=== PATIENT | female | born 1975 | race Caucasian/White ===

== ENCOUNTER 2020-08-17 08:46 | Outpatient (NON) | payer OTHER, SELFPAY ==
[2020-08-17 18:45] LABS: SARS-CoV-2 RNA PCR Positive
== END 2020-08-17 08:47 ==
LOC: ANHCOVIDDT 08:49
PROVIDERS: PCP Nurse Practitioner Adult Health; Visit Provider Nurse Practitioner Adult Health
DX: U07.1 COVID-19 (principal)
CPT/HCPCS: 87635; C9803; U0003

== ENCOUNTER 2020-09-30 15:03 | Outpatient (CLI) | payer OTHER, SELFPAY ==
--- NOTE | ~2020-09-30 | XR_ITS ---
EXAMINATION: XR chest 2V 09/30/2020 16:33 INDICATION: Right-sided chest pain PROCEDURE: 2 view chest COMPARISON: 05/09/2017 FINDINGS: The lungs are clear. The cardiomediastinal silhouette is within normal limits. There are no pleural effusions. There is no pneumothorax suspected. There are breast implants. IMPRESSION: 1: NO ACUTE CARDIOPULMONARY DISEASE. Reviewed, dictated and finalized at location B. IER GREETER
--- NOTE | 2020-09-30 15:20 | ECG_ITS ---
Measurements Intervals [place] Rate: 76 P: 73 IN: 141 QRS: 85 QRSD: 89 T: 65 QT: 371 QTc: 420 Interpretive Statements SINUS RHYTHM WITH SINUS ARRHYTHMIA LEFT ATRIAL ENLARGEMENT BORDERLINE ST ABNORMALITY- ANTEROLAT/INF LEADS BORDERLINE ECG Electronically Signed On 09-30-2020 16:04:02 SHANK BREAKER by Syed Miller D.O.
== END 2020-09-30 15:04 | disposition home or self-care (01) ==
LOC: ANHLAB 15:06
PROVIDERS: PCP Family Medicine; Visit Provider Family Medicine
DX: R07.9 Chest pain, unspecified (principal); R94.31 Abnormal electrocardiogram [ECG] [EKG]
CPT/HCPCS: 71046; 93005

== ENCOUNTER 2022-03-16 18:09 | Outpatient (CLI) | payer OTHER, SELFPAY ==
--- NOTE | ~2022-03-16 | CT_ITS ---
EXAMINATION: CT diagnostic chest wo con DATE: 03/16/2022 18:26 INDICATION: Left rib pain below the breast TECHNIQUE: Computed tomography (CT) of the chest was performed without intravenous contrast. The dose -length product was 125.76 mGy-cm. Automated exposure control and iterative reconstruction technique were employed. COMPARISON: Chest x-ray dated 09/30/2020 FINDINGS: There are breast implants. No significant pleural or pericardial effusion. No thoracic lymp hadenopathy. There is bilateral lower lobe atelectasis. No endobronchial lesions. No focal airspace c onsolidation. No pulmonary nodules or masses. There is a healing left sixth rib fracture. IMPRESSION: 1. Healing left sixth rib fracture. 2: Bilateral lower lobe atelectasis. Reviewed, dictated and finalized at location A.
== END 2022-03-16 18:10 | disposition home or self-care (01) ==
LOC: ANHIMG 18:12
PROVIDERS: PCP Nurse Practitioner; Visit Provider Nurse Practitioner
DX: R07.81 Pleurodynia (principal); R91.8 Other nonspecific abnormal finding of lung field
CPT/HCPCS: 71250

== ENCOUNTER 2022-11-02 08:01 | Outpatient (CLI) | payer OTHER, SELFPAY ==
[2022-11-02 20:51] LABS: Kit Draw Collected
== END 2022-11-02 08:02 | disposition home or self-care (01) ==
LOC: ANHGOSHLAB 08:03
PROVIDERS: PCP Internal Medicine; Visit Provider Nurse Practitioner
DX: Z13.220 Encounter for screening for lipoid disorders (principal); Z13.29 Encounter for screening for other suspected endocrine disorder
CPT/HCPCS: 36415

== ENCOUNTER 2023-03-06 09:45 | Day surgery (SDC) | payer OTHER, SELFPAY ==
[2023-02-23 14:59] VITALS: BMI 22.8
[2023-03-06] MEDS: LACTATED RINGERS 1,000 ML 150 ML IV CONT (10:32)
[2023-03-06 10:35] VITALS: BP 113/74; PULSE 71; RESP 20; TEMP 36.7; O2SAT 98
--- NOTE | 2023-03-06 10:39 | WPDANESEPPF ---
Anes - Initial Pre Proc Eval Procedure: Operation Date: 03/06/23 12:30 Proposed Procedures p Screening Colonoscopy - Tremaine Giron MD s [facility] Hemorrhoid Treatment - Tremaine Giron MD Date/Time: 03/06/23 10:39 Surgeon: Tremaine Giron MD Pre Op Diagnosis: hemorrhoids, neoplasm screening Patient Data Age: 47 Gender: F Height: 1.7 m Weight: 64.1 kg Last Vital Signs Temp 98.0 F 03/06/23 10:35 Pulse 71 03/06/23 10:35 Resp 20 03/06/23 10:35 BP 113/74 03/06/23 10:35 Pulse Ox 98 03/06/23 10:35 O2 Del Method Room Air 03/06/23 10:35 Allergies Allergy/AdvReac Type Severity Reaction Status Date / Time No Known Allergies Allergy Mild Verified 03/06/23 10:32 Home Medications Medication Instructions Recorded Confirmed Type escitalopram oxalate 5 mg tablet 5 mg PO DAILY 03/09/22 03/06/23 History (Lexapro) dextroamphetamine-amphetamine 10 10 mg PO BID #60 tabs 02/22/23 03/06/23 Rx mg tablet (Adderall) Patient hx anesthesia problems: none Family hx anesthesia problems: none Results Review: All pre-operative results and documents have been reviewed as part of the pre-operative evaluation. [facility] Past Medical History Medical History ADHD Anxiety Family history of multiple myeloma Headache High risk medication use Surgical History Surgical History H/O mastectomy Double with DTI 06/2019 Family History Family History Father Multiple myeloma Blood clotting disorder Mother Breast cancer Depression Grandparent Carcinoma of colon Social History Social History Smoking status: Never smoker Alcohol intake: current Drinks per week: 1 Alcohol use details: occassional Substance use: never Substance use type: does not use Lack of Transportation: No Lack of Food: Never True Current Housing: I Have Housing Concerned About Future Housing: No Difficulty Paying Gas/Electric Bills: No Difficulty Paying for Meds: No Currently Unemployed: No Education: Bachelor's Degree Difficulty w/ Childcare or Family Care: No Living arrangements: with family Gender identity (if verbalized by the patient): Female Spiritual care concerns: No Anes - Eval Final PreProcedure Day of Procedure 03/06/23 10:39 Patient weight: normal Heart: regular rate and rhythm Lungs: clear to auscultation Airway: Mallampati scale class II Neurological: alert and oriented Last oral intake: >/= 8 hours ASA classification: II Emergent: no Anesthetic plan: proceed Anesthesia type and monitoring: general GIVS and standard monitoring Results Review: All pre-operative results and documents have been reviewed as part of the pre-operative evaluation. Informed Consent: The patient's anesthetic plan and its attendant risks and benefits were discussed with the patient/family/POA. Questions were solicited and answers provided to the satisfaction of the patient/family/POA.
--- NOTE | 2023-03-06 11:25 | PM.HPGS ---
History of Present Illness History of Present Illness Consent: Risks, benefits, and alternatives have been discussed and questions answered. Patient agrees to proceed with procedure. Chief complaint: hemorrhoids, neoplasm screening Narrative: Rajwinder Bolton is a 47 year old female here for first screening colonoscopy, also had external hemorrhoid for which has been using OTC treatment Review of Systems Constitutional: Constitutional: Denies headache(s) and Denies weakness Eyes: Eyes: Denies blurry vision ENT: Reports Normal hearing present, Denies headache(s) and Denies neck pain Cardiovascular: Cardiovascular: Denies chest pain and Denies dyspnea Respiratory: Respiratory: Denies dyspnea Gastrointestinal: Gastrointestinal: Reports no additional gastrointestinal complaints Genitourinary: Genitourinary: Denies dysuria Musculoskeletal: Musculoskeletal: Denies neck pain Integumentary/Breasts: Skin/Breast: Denies dry skin Neurologic: Reports Normal hearing present, Denies headache(s) and Denies weakness Psychiatric: Psychiatric: Denies anxiety Endocrine: Endocrine: Denies change in body appearance Hematologic/Lymphatic: Hematologic/Lymphatic: Denies easy bleeding Allergic/Immunologic: Allergic/Immunologic: Denies urticaria PMFSH Past Medical History Medical History (Updated 03/06/23 @ 11:26 by Tremaine Giron MD) ADHD Anxiety Family history of multiple myeloma Headache Hemorrhoid High risk medication use Surgical History Surgical History H/O mastectomy Double with DTI 06/2019 Family History Family History Father Multiple myeloma Blood clotting disorder Mother Breast cancer Depression Grandparent Carcinoma of colon Social History Social History Smoking status: Never smoker Alcohol intake: current Drinks per week: 1 Alcohol use details: occassional Substance use: never Substance use type: does not use Lack of Transportation: No Lack of Food: Never True Current Housing: I Have Housing Concerned About Future Housing: No Difficulty Paying Gas/Electric Bills: No Difficulty Paying for Meds: No Currently Unemployed: No Education: Bachelor's Degree Difficulty w/ Childcare or Family Care: No Living arrangements: with family Gender identity (if verbalized by the patient): Female Spiritual care concerns: No Meds Home Medications and Allergies Home Medications Medication Instructions Recorded Confirmed Type escitalopram oxalate 5 mg tablet 5 mg PO DAILY 03/09/22 03/06/23 History (Lexapro) dextroamphetamine-amphetamine 10 10 mg PO BID #60 tabs 02/22/23 03/06/23 Rx mg tablet (Adderall) Allergies Allergy/AdvReac Type Severity Reaction Status Date / Time No Known Allergies Allergy Mild Verified 03/06/23 10:32 Vital Signs Vital Signs - 24 hr 03/06/23 10:35 Temperature 98.0 F Pulse Rate 71 Respiratory Rate 20 Blood Pressure 113/74 Pulse Oximetry 98 Oxygen Delivery Room Air Exam Const: General: comfortable and no acute distress HENMT: Face/Nose/Sinus: Normal nares present Eyes: General: appearance normal, both eyes and all related structures Neck: Neck: no JVD Resp: Auscultation: clear to auscultation bilaterally Cardio: Rate: regular rate Rhythm: regular rhythm GI: Inspection: non-distended GI Palp: Yes Soft to palpation Skin: General skin exam: normal color Neuro: General: gait normal Speech: normal speech Extrem: General: normal to inspection Psych: Mental Status: mental status grossly normal Assessment and Plan Assessment and plan (1) Screening for colon cancer: Code(s): Z12.11 - Encounter for screening for malignant neoplasm of colon Status: Acute Assessment and Plan: colonoscopy (2) Hemorrh
[2023-03-06 11:46] VITALS: BP 86/68; PULSE 87; RESP 20; O2SAT 100
--- NOTE | 2023-03-06 11:46 | W.PM.PROC2 ---
Procedure Note - Detailed Date of Procedure 03/06/23 Pre-op Diagnosis hemorrhoids Post-op Diagnosis Same Procedure Performed irc of internal hemorrhoids Surgeon Tremaine Giron MD Anesthesia MAC (also had colonoscopy) Description of Procedure used anoscopy and found grade II non-bleeding internal hemorrhoids, no fissure. Also had skin tags. Then introduced IRC probe and hemorrhoids treated for 1.5 seconds x6
[2023-03-06 11:56] VITALS: BP 84/36; PULSE 71; RESP 20; O2SAT 100
[2023-03-06 12:06] VITALS: BP 104/72; PULSE 60; RESP 20; O2SAT 98
== END 2023-03-06 12:30 | disposition home or self-care (01) ==
PROVIDERS: PCP Nurse Practitioner; Visit Provider Internal Medicine Gastroenterology
PROC: 0DJD8ZZ Inspection of Lower Intestinal Tract, Via Natural or Artificial Opening Endoscopic (ICD-10-PCS; CPT 45378; principal; 2023-03-06 12:30)
PROC: (CPT 46930; 2023-03-06 12:30)
DX: Z12.11 Encounter for screening for malignant neoplasm of colon (principal); D12.3 Benign neoplasm of transverse colon; K64.8 Other hemorrhoids; K64.4 Residual hemorrhoidal skin tags; F41.9 Anxiety disorder, unspecified; F90.9 Attention-deficit hyperactivity disorder, unspecified type
CPT/HCPCS: 45385; 46930; 88305; J2704; J7120

== ENCOUNTER 2023-08-03 15:40 | Emergency (ER) | payer OTHER, SELFPAY ==
--- NOTE | ~2023-08-03 | CT_ITS ---
EXAMINATION: CT soft tissue neck w con DATE: 08/03/2023 17:38 INDICATION: Neck pain and swelling TECHNIQUE: Computed tomography (CT) of the neck was performed with 75 mL Omnipaque-350 intravenous co ntrast. Automated exposure control and iterative reconstruction technique were employed. The dose-chon gth product was 373.82 mGy-cm. COMPARISON: None FINDINGS: Orbits are normal. The paranasal sinuses are clear. Mild mucosal thickening at the inferior right max illary sinus. Mastoid air cells and middle ear cavities are clear. Prior root canal canal at the left second maxillary molar. Lucencies suggesting prior extractions of the bilateral third maxillary mola rs. No periapical erosions or subperiosteal abscesses along the mandible or maxilla. No evident infla mmatory stranding in the subcutaneous tissues at the right mandibular region of concern. Submandibula r and parotid glands are symmetric. A few likely benign subcentimeter thyroid nodules. There are scat tered normal-sized lymph nodes in the neck, no lymphadenopathy. No masses identified. The vasculatur e is patent and normal in caliber. Airway is unremarkable. Superior mediastinum is unremarkable. Lung apices are normal. Bones are unremarkable. IMPRESSION: 1. No evident acute dental disease or inflammatory changes in the right submandibular region of betty rn. 2. A few subcentimeter thyroid nodules which are likely benign. Reviewed, dictated and finalized at location A. NTION SERGEANT IMPRESSION: 1. No evident acute dental disease or inflammatory changes in the right submand ibular region of concern. 2. A few subcentimeter thyroid nodules which are likely benign.
[2023-08-03 15:44] VITALS: BP 134/69; PULSE 87; RESP 20; TEMP 36.8; O2SAT 100
[2023-08-03 17:26] LABS: Basophils Absolute Auto 0.1 K/mm3 (0.0-0.1); Basophils Percent Auto 0.6 % (0.2-1.2); Eosinophils Percent Auto 0.2 % (0-4.4); Hematocrit 43.8 % (37.0-47.0); Hemoglobin 14.6 g/dL (12.0-15.0); Immature Granulocyte Absolute 0.03 K/mm3 (0.00-0.031); Immature Granulocyte Percent A 0.3 % (0-0.5); Lymphocytes Absolute Auto 0.87 K/mm3 (0.9-3.2); Lymphocytes Percent Auto 9.1 % (18.3-44.2); Mean Corpuscular HGB Conc 33.3 g/dl (32-36); Mean Corpuscular Hemoglobin 31.1 pg (26-34); Mean Corpuscular Volume 93.4 fl (80-100); Mean Platelet Volume 10.8 fl (7.4-10.4); Monocytes Absolute Auto 0.2 K/mm3 (0.1-0.6); Monocytes Percent Auto 2.5 % (2.6-8.5); Neutrophils Absolute Auto 8.3 K/mm3 (1.3-6.7); Neutrophils Percent Auto 87.3 % (45.5-73.1); Platelet Count Result 270 k/mm3 (150-375); Red Blood Count 4.69 M/mm3 (4.2-5.4); Red Cell Distribution Width 12.4 % (11.5-14.5); White Blood Count 9.5 K/mm3 (4.5-10.0)
--- NOTE | 2023-08-03 17:27 | ED.GENADULT ---
[facility] - General Adult General Chief complaint: Neck Pain/Injury Stated complaint: dental Time Seen by Provider: 08/03/23 16:42 Source: patient Mode of arrival: ambulatory Limitations: no limitations History of Present Illness HPI narrative: This is a 48-year-old female who presents to the ED with chief complaint of upper back and neck pain for the past 10 days. Reports that she had a root canal on 07/24/2023. Ever since then she has had episodes of feeling like the neck is tight and the head feels heavy. states she has had 1 episode of feeling with this the remote past and was seen so did a full negative workup including lumbar puncture. States today she does not feel nearly as bad. She also reports bilateral lymphadenopathy, worse on the right for the past several weeks. Reports she has had spondylosis in the cervical spine the and when she had this problem in the past, it got dramatically better with a cocktail that rx'd that included gabapentin. She feels that the pain from the root canal is improving appropriately. She has been able to control pain at baseline with ibuprofen. Denies fevers, chills, nausea, vomiting, problems swallowing, trismus, drooling. Denies headache, numbness, weakness, vision change, speech change. Related Data Home Medications Medication Instructions Recorded Confirmed escitalopram oxalate 5 mg tablet 5 mg PO DAILY 03/09/22 05/22/23 (Lexapro) Allergies Allergy/AdvReac Type Severity Reaction Status Date / Time No Known Allergies Allergy Mild Verified 08/03/23 15:42 Review of Systems Review of Systems: All systems as dictated in [facility] Past Medical History Medical History ADHD Anxiety Family history of multiple myeloma Headache Hemorrhoid High risk medication use Surgical History Surgical History H/O mastectomy Double with DTI 06/2019 Family History Family History Father Multiple myeloma Blood clotting disorder Mother Breast cancer Depression Grandparent Carcinoma of colon Social History Social History (Updated 05/22/23 @ 15:39 by Alison Flores MA) Smoking status: Never smoker Alcohol intake: current Drinks per week: 1 Alcohol use details: occassional Substance use: never Substance use type: does not use Lack of Transportation: No Lack of Food: Never True Current Housing: I Have Housing Concerned About Future Housing: No Difficulty Paying Gas/Electric Bills: No Difficulty Paying for Meds: No Currently Unemployed: No Education: Bachelor's Degree Difficulty w/ Childcare or Family Care: No Living arrangements: with family Occupation/Education: occupation Gender identity (if verbalized by the patient): Female Spiritual care concerns: No Exam Narrative: GENERAL: Well-appearing, well-nourished, and in no acute distress. HEAD: Normocephalic, atraumatic. EYES: PERRLA and EOMI. ENT: Nares clear, no rhinorrhea or epistaxis. Mucous membranes moist. Oropharynx without tonsillar hypertrophy exudate or other lesions. floor of the mouth intact. No trismus or drooling. NECK: Supple. No adenopathy or masses. negative meningeal signs. CHEST: No respiratory distress. Clear to auscultation. No wheezes rales or rhonchi HEART: Regular rate and rhythm. No murmur heard. Normal peripheral pulses. ABDOMEN: Soft, nontender, nondistended, normal active bowel sounds. MSK: Normal range of motion. No edema. No midline spinal tenderness throughout. SKIN: Warm, dry, no rash. NEURO: Alert and oriented x3. No focal deficits. PSYCH: Normal mood and affect. Course Vital Signs Vital signs: Vital Signs Temperature 98.3 F 08/03/23 15:44 Pulse Rate 87 08/03/23 15:44 Respiratory Rate 20 08/03/23 15:44 Blood Pressure 134/69 08/03/23 15:44 Pulse Oximetry
[2023-08-03 17:35] LABS: Estimated CRCL calculation 72 ml/min; Estimated Glomerular Filt Rate > 60
[2023-08-03 17:45] LABS: Alanine Aminotransferase 25 U/L (6-35); Alkaline Phosphatase 78 U/L (38-126); Anion Gap 8 mmol/L (8-16); Aspartate Amino Transferase 31 U/L (14-36); Bilirubin,Total 1.2 mg/dL (0.2-1.3); Blood Urea Nitrogen 23 mg/dL (7-17); CRP < 0.5 mg/dL (<1.0); Calcium 9.8 mg/dL (8.4-10.2); Carbon Dioxide 27 mmol/L (22-30); Chloride 102 mmol/L (98-107); Estimated CRCL calculation 72 ml/min; Estimated Glomerular Filt Rate > 60; Glucose 105 mg/dL (65-110); Potassium 3.9 mmol/L (3.4-5.0); Sodium 137 mmol/L (137-145)
--- NOTE | 2023-08-03 18:42 | PC.NURSE ---
pt walked out without discharge paperwork. IV was removed prior to leaving.
== END 2023-08-03 18:45 | disposition home or self-care (01) ==
PROVIDERS: Emergency Provider Physician Assistant; PCP Nurse Practitioner
DX: M54.2 Cervicalgia (principal)
CPT/HCPCS: 36415; 70491; 80053; 85025; 86140; 99284; Q9967

== ENCOUNTER 2023-10-08 09:15 | Outpatient (CLI) | payer OTHER, SELFPAY ==
[2023-10-08 13:41] LABS: Cholesterol 212 mg/dL (0-200); HDL Direct 104 mg/dL; Triglycerides 41 mg/dL (<150)
[2023-10-08 13:45] LABS: Vitamin D 25 Hydroxy 24.3 ng/mL
[2023-10-08 13:52] LABS: LDL Cholesterol Direct 88 mg/dL
[2023-10-10 06:35] LABS: FSH 162.2 mIU/mL (***)
[2023-10-12 10:58] LABS: Testosterone Free 1.5 pg/mL (0.1-6.4); Testosterone Total 19 ng/dL (2-45)
== END 2023-10-08 09:16 | disposition home or self-care (01) ==
LOC: ANHGOSHLAB 09:17
PROVIDERS: PCP Nurse Practitioner; Visit Provider Nurse Practitioner
DX: Z13.220 Encounter for screening for lipoid disorders (principal); E55.9 Vitamin D deficiency, unspecified; N95.1 Menopausal and female climacteric states; R53.83 Other fatigue
CPT/HCPCS: 36415; 80061; 82306; 83001; 83002; 84402; 84403; 84443

== ENCOUNTER 2024-03-19 10:34 | Outpatient (CLI) | payer OTHER, SELFPAY ==
[2024-03-20 23:53] LABS: Amphetamines POSITIVE ng/mL (<500); Barbiturates NEGATIVE ng/mL (<300); Benzodiazepines NEGATIVE ng/mL (<100); Cocaine Metabolite NEGATIVE ng/mL (<150); Marijuana Metabolite NEGATIVE ng/mL (<20); Methadone Metabolite NEGATIVE ng/mL (<100); Opiates NEGATIVE ng/mL (<100); Oxidant NEGATIVE mcg/mL (<200)
== END 2024-03-19 10:35 | disposition home or self-care (01) ==
LOC: ANHGOSHLAB 10:36
PROVIDERS: PCP Nurse Practitioner; Visit Provider Nurse Practitioner
DX: F90.9 Attention-deficit hyperactivity disorder, unspecified type (principal); Z79.899 Other long term (current) drug therapy
CPT/HCPCS: 80307

== ENCOUNTER 2024-05-01 15:54 | Outpatient (CLI) | payer OTHER, SELFPAY ==
[2024-05-01 19:28] LABS: Add Urine Microscopic? YES; Appearance Urine Clear (Clear); Bacteria Urine 1+ /hpf; Bilirubin Urine Negative (Negative); Blood Urine Negative (Negative); Color Urine Yellow (Yellow); Glucose Urine UA Negative (Negative); Ketones Urine Negative (Negative); Leukocyte Esterase Ur Trace LEU/UL (Negative); Nitrate Urine Negative (Negative); Non Pathogenic Casts 0-2; Protein Urine Negative (Negative); Specific Grav Ur 1.025 (1.001-1.035); Squamous Epithelial Cell Urine Occasional /hpf (Few); Urobilinogen Urine 0.2 mg/dL (<2.0); pH Urine 6.5 (5.0-9.0)
== END 2024-05-01 15:55 | disposition home or self-care (01) ==
LOC: ANHGOSHLAB 15:55
PROVIDERS: PCP Nurse Practitioner; Visit Provider Nurse Practitioner
DX: R30.0 Dysuria (principal)
CPT/HCPCS: 81001; 87086; 87088

== ENCOUNTER 2025-03-18 10:31 | Outpatient (CLI) | payer OTHER, SELFPAY ==
--- OUTSIDE RECORDS SUMMARY | 2025-03-18 11:04 | XMS_ITS | Clinical Summary ---
Author Organization [facility] Address [address] [place] [address] Care Team Providers Care Holistic Pulser Name Role Phone Lidia Staton MD Primary Care Provider [phone] Source Comments [facility],non-owned Affiliates and Associated Physician Practices is amultiple site organization consisting of ambulatory clinics and hospital sitesin [place], [place], [place] and [place]. This disclosure is being madepursuant to the Care Everywhere program and may not contain all information available regarding this patient. Last updated 18.[facility] Allergies No known active allergies Medications * Be aware that medications may not be up to date on this document. Alwaysverify current medications with the patient. cyclobenzaprine (FLEXERIL) 10 MG tablet Take 1 Tab by mouth 2 times daily as needed 06/26/2016 Active ibuprofen (MOTRIN) 800 MG tablet Take 1 Tab by mouth 3 times daily 08/01/2016 Active methylPREDNISol one (MEDROL DOSEPAK) 4 MG tablet Take by mouth as directed 1 Each 08/23/2016 Active Active Problems No known active problems Social History Tobacco Use Types Packs/Day Years Used Date Smoking Tobacco: Never Smokeless Tobacco: Never Alcohol Use Standard Drinks/Week Comments Yes 0 (1 standard drink = 0.6 oz pur e alcohol) Comments Unknown Sex and Gender Information Value Date Recorded Sex Assigned at Not on file Legal Sex Female 2:16 PM CDT Gender Identity Not on file Sexual Orientation Not on file Occupation Industry Job Start Date Job End Date TEACHER Not on file Not on file Not on file Last Filed Vital Signs Vital Sign Reading Time Taken Comments Blood Pressure 105/72 08/23/2016 1:19 PM CLAY DIGGER Pulse 70 08/23/2016 1:19 PM CLAY DIGGER Temperature - - Respiratory Rate - - Oxygen Saturation - - Inhaled Oxygen Concentration - - Weight 65.8 kg (145 lb) 08/23/2016 1:19 PM CLAY DIGGER Height 170.2 cm (5' 7) 08/23/2016 1:19 PM CLAY DIGGER Body Mass Index 22.71 08/23/2016 1:19 PM CLAY DIGGER Plan of Treatment Health Maintenance Due Date Last Done Comments COLOGUARD (AGES 45-75) - COL ON CA SCREENING 1974 COLON MONITORING 1974 COLONOSCOPY - COLON CA SCREENING 1974 CT COLONOGRAPHY - COLON CA SCREENING 1974 Colorectal Cancer Screening 1974 FIT - COLON CA SCREENING 1974 FLEX SIG - COLON CA SCREENING 1974 LIPID TESTING 1974 MAMMOGRAM 1974 HIV SCREENING 1989 HEPATITIS C SCREENING 05/25/1992 DTAP/TDAP/TD VACCINES (1 - Tdap) 1993 HEPATITIS B VACCINE (1 of 3 - 19+ 3-dose series) 1993 PAP SMEAR 1995 COVID-19 VACCINE (1 - 2023-2 5 season) 2024 PNEUMOCOCCAL VACCINE 50+ (1 of 1 - PCV) 2024 ZOSTER VACCINE (1 of 2) 2024 DEPRESSION SCREENING 08/20/2024 INFLUENZA VACCINE (#1) 2025 HIB VACCINE Aged Out No longer eligi ble based on patient's age to complete this topic HPV VACCINE Aged Out No longer eligi ble based on patient's age to complete this topic MENINGOCOCCAL (Group B) VACC INE SHARED DECISION-MAKING Aged Out No longer eligibl e based on patient's age to complete this topic MENINGOCOCCAL GROUPS A/C/Y/W VACCINE Aged Out No longer eligible b ased on patient's age to complete this topic Insurance [facility] [place] [address] [facility] Care Teams Holistic Pulser Relationship Specialty Start Date End Date Lidia Staton MD [address] [place] [phone] PCP - General Family Medicine 10/29/14
--- OUTSIDE RECORDS SUMMARY | 2025-03-18 11:04 | XMS_ITS | Encounter Summary ---
Author Organization [facility] Address 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
--- OUTSIDE RECORDS SUMMARY | 2025-03-18 11:04 | XMS_ITS | Clinical Summary ---
Author Organization [facility] Address [address] [place] [address] Care Team Providers Care Jump Iron Machine Presser Name Role Phone Unavailable Primary Care Provider Unavailabl e Social History Tobacco Use Types Packs/Day Years Used Date Smoking Tobacco: Never Assessed Comments Unknown Sex and Gender Information Value Date Recorded Sex Assigned at Not on file Legal Sex Female 8:03 PM CDT Gender Identity Not on file Sexual Orientation Not on file Plan of Treatment Health Maintenance Due Date Last Done Comments Cervical Cancer Screening Pa p Smear (Age 30 to 64) Every 3 Years 1974 Colorectal Cancer Screening Colonoscopy (10 Years) 1974 Annual Physical 1977 Hepatitis C 1992 DTaP, Tdap and Td Vaccines ( 1 - Tdap) 1993 Hepatitis B Vaccines (1 of 3 - 19+ 3-dose series) 1993 Cervical Cancer Screening Pa p with HPV Testing (Age 30 to 64) Every 5 Years 2004 Cervical Cancer Screening with HPV 2004 Mammogram Screening 2014 COVID-19 Vaccine (2023-2 5 season) 2024 Pneumococcal Vaccine: 50+ Ye ars (1 of 1 - PCV) 2024 Zoster Vaccines (1 of 2) 2024 Meningococcal B Vaccine Aged Out No l onger eligible based on patient's age to complete this topic Meningococcal Vaccine Aged Out No hamida mustapha eligible based on patient's age to complete this topic RSV Immunizations Under 20 Months Aged Out No longer eligible based on patient's age to complete this topic
--- OUTSIDE RECORDS SUMMARY | 2025-03-18 11:04 | XMS_ITS | Clinical Summary ---
Author Organization [facility] Address [address] 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
[2025-03-18 19:57] LABS: Hematocrit 45.0 % (37.0-47.0); Hemoglobin 14.8 g/dL (12.0-15.0); Immature Granulocyte Percent A 0.2 % (0-0.5); Lymphocytes Absolute Auto 1.79 K/mm3 (0.9-3.2); Mean Corpuscular HGB Conc 32.9 g/dl (32-36); Mean Corpuscular Hemoglobin 32.0 pg (26-34); Mean Corpuscular Volume 97.4 fl (80-100); Nucleated Red Blood Cells Absolute Auto 0.000 K/mm3 (0.0-0.012); Nucleated Red Blood Cells Perc 0.0 % (0.0-0.2); Platelet Count Result 263 k/mm3 (150-375); Red Blood Count 4.62 M/mm3 (4.2-5.4); White Blood Count 4.4 K/mm3 (4.5-10.0)
[2025-03-18 20:15] LABS: Alanine Aminotransferase 21 U/L (6-35); Albumin Level 4.8 g/dL (3.5-5.1); Alkaline Phosphatase 81 U/L (38-126); Anion Gap 7 mmol/L (4-12); Aspartate Amino Transferase 43 U/L (14-36); Bilirubin,Total 1.1 mg/dL (0.2-1.3); Blood Urea Nitrogen 12 mg/dL (7-17); Calcium 10.0 mg/dL (8.4-10.2); Carbon Dioxide 27 mmol/L (22-30); Chloride 103 mmol/L (98-107); Cholesterol 199 mg/dL (0-200); Estimated Glomerular Filt Rate > 60; Glucose 82 mg/dL (65-110); HDL Direct 100 mg/dL; Potassium 4.4 mmol/L (3.4-5.0); Sodium 137 mmol/L (137-145); Total Protein 7.7 g/dL (6.3-8.2); Triglycerides 44 mg/dL (<150)
[2025-03-18 20:50] LABS: Thyroid Stimulating Hormone 1.350 uIU/mL (0.465-4.680)
== END 2025-03-18 10:32 | disposition home or self-care (01) ==
LOC: ANHGOSHLAB 10:32
PROVIDERS: PCP Internal Medicine; Visit Provider Nurse Practitioner
DX: E55.9 Vitamin D deficiency, unspecified (principal); Z13.220 Encounter for screening for lipoid disorders; Z13.29 Encounter for screening for other suspected endocrine disorder; R53.83 Other fatigue
CPT/HCPCS: 36415; 80053; 80061; 80307; 82306; 84443; 85025